=== PATIENT | female | born 1945 ===

== ENCOUNTER 2018-12-17 20:30 | Inpatient (IN) | payer MEDICARE, OTHER ==
--- NOTE | 2018-12-17 21:30 | ED PDOC ---
HPI: Trauma/Fall - HPI Time Seen by Provider: 12/17/18 20:36 Chief Complaint (Nursing): Trauma Chief Complaint (Provider): Trauma History Per: Patient History/Exam Limitations: no limitations Onset/Duration Of Symptoms: Mins Injury Occurred (Timing): Just Before Arrival Additional Complaint(s): 73 y/o female presents to the ED for evaluation of head trauma s/p fall, onset just prior to arrival. History obtained using [employer] #[id number]. Patient states she is supposed to use a walker but didn't when she tripped over an Air Conditioning unit and fell causing her to hit her head. Patient notes of experiencing a little pain to her lower back. Otherwise, patient denies any other injury to the extremities. Patient states she was able to get up and walk after. At this time, patient notes of having a mild headache where her head impa cted the ground. Otherwise, patient denies loss of consciousness, vomiting and nausea. Past Medical History Reviewed: Historical Data, Nursing Documentation, Vital Signs Vital Signs: Last Vital Signs Temp 98.2 F 12/17/18 20:36 Pulse 89 12/17/18 20:36 Resp 20 12/17/18 20:36 BP 159/86 H 12/17/18 20:36 Pulse Ox 100 12/17/18 20:36 - Medical History PMH: No Chronic Diseases - Surgical History Surgical History: No Surg Hx - Family History Family History: States: Unknown Family Hx - Allergies Allergies/Adverse Reactions: Allergies Allergy/AdvReac Type Severity Reaction Status Date / Time No Known Allergies Allergy Verified 12/17/18 20:36 Review of Systems ROS Statement: Except As Marked, All Systems Reviewed And Found Negative Gastrointestinal: Negative for: Nausea, Vomiting Musculoskeletal: Positive for: Other (HEAD PAIN S/P FALL ) Neurological: Positive for: Headache Physical Exam - Reviewed Nursing Documentation Reviewed: Yes Vital Signs Reviewed: Yes - Physical Exam Appears: Positive for: No Acute Distress Head Exam: Negative for: NORMAL INSPECTION (6 cm hematoma noted to the forehead. No crepidous or bony abnormality noted. ) Skin: Positive for: Normal Color, Warm, Dry Eye Exam: Positive for: Normal appearance, EOMI, PERRL Neck: Positive for: Normal (Cervical, Thoracic and Lumbar Spine with no bony abnormality or step off. ) Cardiovascular/Chest: Positive for: Regular Rate, Rhythm, Chest Non Tender. Negative for: Murmur Respiratory: Positive for: Normal Breath Sounds. Negative for: Respiratory Distress Gastrointestinal/Abdominal: Positive for: Normal Exam, Soft. Negative for: Tenderness Back: Positive for: Other (Cervical, Thoracic and Lumbar Spine with no bony abnormality or step off. 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 Negative for: Motor/Sensory Deficits - Laboratory Results Result Diagrams: 12/17/18 23:26 12/17/18 23:26 - ECG O2 Sat by Pulse Oximetry: 100 (RA) Pulse Ox Interpretation: Normal Medical Decision Making Medical Decision Making: Time: 2058 A/P: 73 y/o female presenting with a mechanical fall without syncope -- Will obtain imaging to rule out fracture or intracranial bleed -- CT Cervical Spine w/o Contrast -- CT Head w/o Contrast -- CT Lumbar Spine w/o Contrast -- CT Thoracic Spine w/o Contrast -- CXR Portable -- Motrin 600 mg PO -- Pelvis One View XR EXAM: CT Head Without IV contrast. CLINICAL HISTORY: FALL, INJURY TECHNIQUE: Axial computed tomography images of the head/brain without intravenous contrast. COMPARISON: None provided. FINDINGS: BRAIN: No acute intraparenchymal hemorrhage. No mass lesion. No CT evidence for acute territorial infarct. No midline shift or extra-axial collections. There is mild- moderate diffuse age-appropriate cerebral and cerebellar atrophy. There are bilateral periventricular and subcortical white matter hypolucencies compatible with mild chronic microvascular disease. VENTRICLES: No hydrocephalus. VASCULAR: Atherosclerotic vascular plaquing is seen in the carotid siphons bilaterally. ORBITS: The orbits are unremarkable. SINUSES AND MASTOIDS: The paranasal sinuses and mastoid air cells are clear. BONES: No fracture. SOFT TISSUES: Unremarkable. IMPRESSION: 1. No acute intracranial abnormality. 2. Mild-moderate diffuse age-appropriate cerebral and cerebellar atrophy. 3. Mild chronic microvascular diseases. 4. Atherosclerotic vascular plaquing in the carotid siphons. Electronically signed on Dec 17, 2018 10:49:58 PM EDT by: Kit Henderson M.D., JANET Certified By ABR & CBCCT Fellowship Trained MRI and CT Specialist EXAM: CT Cervical Spine Without IV contrast. CLINICAL HISTORY: FALL TECHNIQUE: Axial computed tomography images of the cervical spine without intravenous contrast. Sagittal and coronal reformatted images were generated. COMPARISON: None provided. FINDINGS: ALIGNMENT: Bony alignment is anatomic. DEGENERATIVE CHANGES: No significant canal stenosis or neural foraminal narrowing evident. There is evidence of degenerative disc disease at C5-6. Advanced bilateral uncovertebral facet arthropathy is noted at C5-6. SOFT TISSUES: The prevertebral soft tissues are within normal limits. BONES: There is a subtle hairline transverse fracture through the base of the odontoid process. This is an unstable fracture. No aggressive appearing osseous lesion. Moderate degenerative arthritis is seen within the atlanto-dens interval. Marginal osteophytic spurring arises from the C3-C6 vertebrae. IMPRESSION: 1. A subtle hairline transverse fracture is seen through the base of the odontoid process. This is an unstable fracture. 2. Evidence of degenerative disc disease at C5-6. 3. Advanced bilateral uncovertebral facet arthropathy at C5-6. 4. Moderate degenerative arthritis within the atlanto-dens interval. Electronically signed on Dec 17, 2018 10:50:16 PM EDT by: Kit Henderson M.D., JANET Certified By ABR & CBCCT Fellowship Trained MRI and CT Specialist EXAM: CT Thoracic Spine Without IV contrast. CLINICAL HISTORY: FALL TECHNIQUE: Axial computed tomography images of the thoracic spine without intravenous co ntrast. Sagittal and coronal reformatted images were generated. CONTRAST: Without COMPARISON: None provided. FINDINGS: BONES: No acute fracture or aggressive appearing osseous lesion. ALIGNMENT: Bony alignment is anatomic. DEGENERATIVE CHANGES: No significant central canal or neural foraminal stenosis. There are some bilateral apophyseal facet arthropathy at all levels which becomes progressively more pronounced in the lower levels.there is focal extrinsic compression defect along the inferior central endplate of T11 and superior central endplate of T12 compatible with Schmorl's node herniation. SOFT TISSUES: The soft tissues are unremarkable. IMPRESSION: 1. No acute thoracic spine abnormality. 2. Bilateral apophyseal facet arthropathy at all levels; more pronounced in the lower levels. 3. Evidence of Schmorl's node herniation at T11-12 as described above. Electronically signed on Dec 17, 2018 10:50:52 PM EDT by: Kit Henderson M.D., JAENT Certified By ABR & CBCCT Fellowship Trained MRI and CT Specialist EXAM: CT Lumbar Spine without IV contrast. CLINICAL HISTORY: FALL TECHNIQUE: Axial computed tomography images of the lumbar spine without intravenous contrast. Sagittal and coronal reformatted images were generated. 670.91 mGy-cm COMPARISON: None provided. FINDINGS: ALIGNMENT: Bony alignment is anatomic. DISCS/DEGENERATIVE CHANGES: T12/L1: No significant central canal or neural foraminal stenosis. Mild bi lateral apophyseal facet arthropathy. L1/L2: No significant central canal or neural foraminal stenosis. Moderate bilateral apophyseal facet arthropathy. L2/L3: There is marked central canal stenosis present. Marked bilateral apophyseal facet arthropathy. Moderate degenerative disc disease is noted. L3/4: No significant central canal or neural foraminal stenosis. Moderate bilateral apophyseal facet arthropathy. L4/5: No significant central canal or neural foraminal stenosis. Mild bilateral apophyseal facet arthropathy. L5/S1: No significant central canal or neural foraminal stenosis. Moderate bilateral apophyseal facet arthropathy. Advanced degenerative disc disease is noted. BONES: No acute fracture or aggressive appearing osseous lesion. SOFT TISSUES: The soft tissues are unremarkable. Extensive atherosclerotic vascular plaquing seen throughout the abdominal aorta. MISCELLANEOUS: No abnormal contrast enhancement. IMPRESSION: 1. No acute lumbar spine abnormality. 2. Marked central spinal canal stenosis at L2-3. 3. Bilateral apophyseal facet arthropathy at all levels; most pronounced at L2- 3. 4. Moderate degenerative disc disease at L2-3 and advanced degenerative disc disease at L5-S1. Electronically signed on Dec 17, 2018 11:01:21 PM EDT by: Kit Henderson M.D., JANET Certified By ABR & CBCCT Fellowship Trained MRI and CT Specialist Case was discussed with Dr. Fabian who reviewed images and states that there is no fracture. Patient was placed in C-Collar Patient admitted to Dr. Hollingsworth's service for observation and CT review in AM Scribe Attestation: Documented by Mariusz Felder, acting as a scribe Rosa Julien MD. Provider Scribe Attestation: All medical record entries made by the Scribe were at my direction and personally dictated by me. I have reviewed the chart and agree that the record accurately reflects my personal performance of the history, physical exam, medical decision making, and the department course for this patient. I have also personally directed, reviewed, and agree with the discharge instructions and disposition. Disposition - Clinical Impression Clinical Impression: Head injury - Patient ED Disposition Is Patient to be Admitted: Yes Discussed With : Von Hollingsworth Doctor Will See Patient In The: Hospital Counseled Patient/Family Regarding: Studies Performed, Diagnosis - Disposition Disposition Time: 23:00 Condition: FAIR
[2018-12-17 23:31] LABS: BASO # 0.1 K/uL (0.0-0.2); BASO % 1.1 % (0.0-2.0); EOS # 0.1 K/uL (0.0-0.7); EOS % 0.7 % (0.0-4.0); LYMPH # 1.5 K/uL (1.0-4.3); LYMPH % 20.5 % (20.0-40.0); MEAN CELL VOLUME 79.6 fl (81.0-99.0); MEAN CORPUSCULAR HEMOGLOBIN 25.6 pg (27.0-31.0); MEAN CORPUSCULAR HGB CONC 32.1 g/dL (33.0-37.0); MEAN PLATELET VOLUME 8.5 fl (7.2-11.7); MONO # 0.3 K/uL (0.0-0.8); MONO % 4.6 % (0.0-10.0); NEUT # 5.4 K/uL (1.8-7.0); NEUT % 73.1 % (50.0-75.0); NRBC % 0.1 % (0.0-0.0); RBC 4.31 Mil/uL (3.80-5.20); RED CELL DISTRIBUTION WIDTH 16.1 % (11.5-14.5); WHITE BLOOD COUNT 7.4 K/uL (4.8-10.8)
[2018-12-17 23:35] LABS: PROTHROMBIN TIME 11.2 Seconds (9.8-13.1)
[2018-12-17 23:38] LABS: PARTIAL THROMBOPLASTIN TIME 33.5 Seconds (25.6-37.1)
[2018-12-17 23:42] LABS: BLOOD UREA NITROGEN 17 mg/dl (7-17); CALCIUM 9.4 mg/dL (8.4-10.2); GFR NON-AFRICAN AMERICAN > 60
[2018-12-18] MEDS: Dextrose 5%/0.45% NS 1,000 ML IV SCH ×2 (06:39→20:33)
[2018-12-18 09:56] LABS: BASO # 0.1 K/uL (0.0-0.2); BASO % 1.1 % (0.0-2.0); EOS # 0.2 K/uL (0.0-0.7); EOS % 2.6 % (0.0-4.0); HEMOGLOBIN 10.8 g/dL (12.0-16.0); LYMPH # 1.7 K/uL (1.0-4.3); MEAN CELL VOLUME 79.2 fl (81.0-99.0); MEAN CORPUSCULAR HEMOGLOBIN 25.6 pg (27.0-31.0); MEAN CORPUSCULAR HGB CONC 32.3 g/dL (33.0-37.0); MEAN PLATELET VOLUME 8.7 fl (7.2-11.7); MONO # 0.6 K/uL (0.0-0.8); MONO % 9.2 % (0.0-10.0); NEUT # 3.9 K/uL (1.8-7.0); NEUT % 61.1 % (50.0-75.0); NRBC % 0.1 % (0.0-0.0); RBC 4.23 Mil/uL (3.80-5.20); RED CELL DISTRIBUTION WIDTH 16.2 % (11.5-14.5); WHITE BLOOD COUNT 6.4 K/uL (4.8-10.8)
[2018-12-18 10:03] LABS: ALB/GLOB RATIO 1.1 (1.0-2.1); ALT/SGPT 23 U/L (9-52); AST/SGOT 31 U/L (14-36); BLOOD UREA NITROGEN 15 mg/dl (7-17); CALCIUM 9.3 mg/dL (8.4-10.2); GFR NON-AFRICAN AMERICAN > 60; HDL CHOLESTEROL 54 MG/DL (30-70)
[2018-12-18 10:12] LABS: LDL CHOLESTEROL 101 mg/dL (0-129)
--- NOTE | 2018-12-18 10:13 | CT ---
Date of service: 12/17/2018 PROCEDURE: CT HEAD WITHOUT CONTRAST. HISTORY: fall COMPARISON: None available. TECHNIQUE: Axial computed tomography images were obtained through the head/brain without intravenous contrast. Radiation dose: Total exam DLP = 718.85 mGy-cm. This CT exam was performed using one or more of the following dose reduction techniques: Automated exposure control, adjustment of the mA and/or kV according to patient size, and/or use of iterative reconstruction technique. FINDINGS: HEMORRHAGE: No intracranial hemorrhage. BRAIN: No mass effect or edema. Atrophy. Chronic microvascular ischemic changes. VENTRICLES: Unremarkable. No hydrocephalus. CALVARIUM: Unremarkable. PARANASAL SINUSES: Unremarkable as visualized. No significant inflammatory changes. MASTOID AIR CELLS: Unremarkable as visualized. No inflammatory changes. OTHER FINDINGS: Mild right frontal scalp swelling. IMPRESSION: Mild right frontal scalp swelling. No calvarial fracture. No acute intracranial pathology. Age-related changes.
--- NOTE | 2018-12-18 10:22 | CT ---
Date of service: 12/17/2018 PROCEDURE: CT Cervical Spine without contrast HISTORY: fall COMPARISON: None available. TECHNIQUE: Axial computed tomography images were obtained of the cervical spine without the use of intravenous contrast. Coronal and sagittal reformatted images were created and reviewed. Radiation dose: Total exam DLP = 285.21 mGy-cm. This CT exam was performed using one or more of the following dose reduction techniques: Automated exposure control, adjustment of the mA and/or kV according to patient size, and/or use of iterative reconstruction technique. FINDINGS: VERTEBRAE: No fracture. Normal alignment. No destructive bony lesion. DISCS/SPINAL CANAL/NEURAL FORAMINA: Multilevel disc space narrowing with disc osteophyte complex formation. PARASPINAL SOFT TISSUES: Unremarkable. OTHER FINDINGS: None. IMPRESSION: Straightening of the normal cervical lordosis may be related to positioning/spasm. No acute fracture. This is discordant with the preliminary report provided by [facility] which described a hairline fracture in the base of the odontoid. The lucency they referred to represents a nutrient foramen/vascular channel. Multilevel degenerative changes.
--- NOTE | 2018-12-18 10:23 | RAD ---
Date of service: 12/17/2018 PROCEDURE: Radiographs of the pelvis. HISTORY: fall COMPARISON: None. TECHNIQUE: 1 view obtained. FINDINGS: BONES: Pelvic Bones: Unremarkable. Hips: No acute fracture. Bilateral joint space narrowing. JOINTS: Sacroiliac Joints: Sclerotic and narrowed. Pubic Symphysis: Sclerotic and narrowed. OTHER FINDINGS: None. IMPRESSION: No acute fracture. Bilateral hip degenerative changes.
--- NOTE | 2018-12-18 10:24 | RAD ---
Date of service: 12/17/2018 HISTORY: fall COMPARISON: No prior. TECHNIQUE: 1 view obtained. FINDINGS: LUNGS: No active pulmonary disease. PLEURA: No significant pleural effusion identified, no pneumothorax apparent. CARDIOVASCULAR: Aortic atherosclerotic calcifications. Cardiomediastinal silhouette stably enlarged. OSSEOUS STRUCTURES: Spinal degenerative changes. VISUALIZED UPPER ABDOMEN: Normal. OTHER FINDINGS: None. IMPRESSION: No active disease.
--- NOTE | 2018-12-18 10:30 | CT ---
Date of service: 12/17/2018 PROCEDURE: CT Thoracic Spine without contrast HISTORY: fall COMPARISON: None available. TECHNIQUE: Axial computed tomography images were obtained of the thoracic spine without intravenous contrast. Coronal and sagittal reformatted images were created and reviewed. Radiation dose: Total exam DLP = 540.67 mGy-cm. This CT exam was performed using one or more of the following dose reduction techniques: Automated exposure control, adjustment of the mA and/or kV according to patient size, and/or use of iterative reconstruction technique. FINDINGS: VERTEBRAE: Subtle sclerosis involving the superior portion of T5. DISCS/SPINAL CANAL/NEURAL FORAMINA: Multilevel disc space narrowing with disc osteophyte complex formation. Multilevel Schmorl nodes. PARASPINAL SOFT TISSUES: Unremarkable. OTHER FINDINGS: Unremarkable. IMPRESSION: Subtle sclerosis involving the superior aspect of T5 for which a very mild vertebral compression fracture cannot be excluded. MRI of the thoracic spine can be obtained for further evaluation as clinically needed. This is discordant the preliminary interpretation provided by [facility].
--- NOTE | 2018-12-18 10:36 | CT ---
Date of service: 12/17/2018 PROCEDURE: CT Lumbar Spine without contrast HISTORY: fall COMPARISON: None available. TECHNIQUE: Axial computed tomography images were obtained of the lumbar spine without the use of intravenous contrast. Coronal and sagittal reformatted images were created and reviewed. Radiation dose: Total exam DLP = 670.91 mGy-cm. This CT exam was performed using one or more of the following dose reduction techniques: Automated exposure control, adjustment of the mA and/or kV according to patient size, and/or use of iterative reconstruction technique. FINDINGS: VERTEBRAE: Unremarkable. No fracture. Normal alignment. DISCS/SPINAL CANAL/NEURAL FORAMINA: T12-L1: Broad-based disc bulge without significant central canal and neural foraminal stenosis L1-2: Broad-based disc bulge with facet hypertrophy/arthropathy resulting in mild central canal stenosis L2-3: Flattening of the disc with vacuum disc phenomenon. Broad based disc bulge with facet hypertrophy/arthropathy resulting in severe central canal and bilateral neural foraminal stenosis. L3-4: Broad-based disc bulge with facet hypertrophy/arthropathy resulting in mild central canal stenosis and mild bilateral neural foraminal stenosis L4-L5: Broad-based disc bulge, asymmetric to the right, with facet hypertrophy/arthropathy result in mild central canal stenosis and [id number] left neural foraminal stenosis L5-S1: Broad-based disc bulge, asymmetric to the right 5th posteriorly displaces the intra canal right S1 nerve PARASPINAL SOFT TISSUES: Unremarkable. OTHER FINDINGS: None. IMPRESSION: No acute fracture. Multilevel degenerative changes as above described, worst at L2-3 where there is severe central canal and neural foraminal stenosis.
[2018-12-18 13:47] LABS: SQUAMOUS EPITHIAL 2 /hpf (0-5); URINE BILIRUBIN NEGATIVE (NEGATIVE); URINE BLOOD SMALL (NEGATIVE); URINE CLARITY CLEAR (Clear); URINE COLOR YELLOW (YELLOW); URINE GLUCOSE (UA) NEG (NEGATIVE); URINE LEUKOCYTE ESTERASE NEG Leu/uL (Negative); URINE PROTEIN NEGATIVE (NEGATIVE); URINE UROBILINOGEN 0.2-1.0 mg/dL (0.2-1.0)
[2018-12-18] MEDS ORDERED: Benzocaine/Menthol (Cepacol) Lozenge PO PRN (16:21)
[2018-12-18] MEDS ORDERED: Magnesium Hydroxide Susp 30 ml UD PO PRN (16:21)
[2018-12-18] MEDS ORDERED: Ergocalciferol 50,000 Intl Units Cap PO SCH ×2 (16:30→22:00)
--- NOTE | 2018-12-18 16:52 | CP.PCM.HP ---
History of Present Illness - History of Present Illness History of Present Illness: CC: Fall/Trauma. 73 y/o F, Hx Dementia, resident at [facility], brought on 12/17/18 to ER [facility], via EMS for evaluation of Fall/Trauma on DOA, Pt trying to walk while in the [facility] without the walker, she lost the balance hitting her head against the ground, Pt c/o of pain in the forehead, described as constant, moderate to severe intensity 8:10 with no relief, associated to hematoma in the site. Worsening symptoms: Irritability, poor historian 2nd to dementia. Aggravated factor: Walking/movements. Denied: Fever, chills, LOC, n/v/d, abdominal pain, urinary symptoms, CP, palpitations, SOB, cough, sick contact. Cervical Spine CT: No acute Fx. CXR: No active disease. Head CT: Mild R frontal scalp swelling, no calvarial Fx or acute intracranial pathology. Lumbar Spine CT: No acute Fx. Degenerative changes, worst at L2-3 area of severe central canal and neural foramina stenosis. Thoracic Spine CT: Sclerosis involving the superior aspect of T5 which a very mild vertebral compression Fx can not be excluded. Present on Admission - Present on Admission Any Indicators Present on Admission: No Review of Systems - Review of Systems Systems not reviewed;Unavailable: Acuity of Condition, Dementia Past Patient History - Past Medical History & Family History Pertinent Family History: Unknown - Past Social History Smoking Status: Unknown If Ever Smoked Alcohol: None Drugs: Denies Home Situation {Lives}: Senior Living - CARDIAC Hx Cardiac Disorders: Yes Hx Hypertension: Yes - PULMONARY Hx Respiratory Disorders: Yes Hx Asthma: Yes - NEUROLOGICAL Hx Neurological Disorder: Yes Hx Dementia: Yes Hx Vertigo: Yes - HEENT Hx HEENT Problems: No - RENAL Hx Chronic Kidney Disease: No - ENDOCRINE/METABOLIC Hx Endocrine Disorders: Yes Hx Hypothyroidism: Yes - HEMATOLOGICAL/ONCOLOGICAL Hx Blood Disorders: No - INTEGUMENTARY Hx Dermatological Problems: No - MUSCULOSKELETAL/RHEUMATOLOGICAL Hx Musculoskeletal Disorders: Yes Hx Falls: Yes - GASTROINTESTINAL Hx Gastrointestinal Disorders: Yes Hx Constipation: Yes Hx Ulcer: Yes Other/Comment: GERD - GENITOURINARY/GYNECOLOGICAL Hx Genitourinary Disorders: No - PSYCHIATRIC Hx Psychophysiologic Disorder: Yes Hx Anxiety: Yes Hx Substance Use: No - SURGICAL HISTORY Hx Surgeries: Yes Other/Comment: pt unsure of surgical hx, pt has hx of dementia. Meds Allergies/Adverse Reactions: Allergies Allergy/AdvReac Type Severity Reaction Status Date / Time Steele And Derivatives Allergy ITCHING Verified 12/18/18 04:51 Physical Exam - Constitutional Appears: No Acute Distress, Confused - Head Exam Additional comments: Hematoma to forehead - Eye Exam Eye Exam: PERRL - ENT Exam ENT Exam: Normal Exam - Neck Exam Neck exam: Positive for: Normal Inspection - Respiratory Exam Respiratory Exam: NORMAL BREATHING PATTERN - Cardiovascular Exam Cardiovascular Exam: REGULAR RHYTHM - GI/Abdominal Exam GI & Abdominal Exam: Normal Bowel Sounds, Soft - Extremities Exam Extremities exam: Positive for: normal inspection - Back Exam Back exam: tenderness (mild on palpation [id number]) - Neurological Exam Neurological exam: Abnormal Gait, CN II-XII Intact Additional comments: Forgetful, confused, follows simple commands. - Psychiatric Exam Additional comments: Calm - Skin Skin Exam: Warm Results - Vital Signs Recent Vital Signs: Last Vital Signs Temp 98.1 F 12/18/18 16:39 Pulse 70 12/18/18 16:39 Resp 20 12/18/18 16:39 BP 133/64 12/18/18 16:39 Pulse Ox 97 12/18/18 16:39 reviewed J.P. - Labs Result Diagrams: 12/20/18 12:15 12/20/18 12:15 Labs: Laboratory Results - last 24 hr 12/17/18 12/17/18 12/17/18 23:26 23:26 23:26 WBC 7.4 RBC 4.31 Hgb 11.0 L Hct 34.3 MCV 79.6 L MCH 25.6 L MCHC 32.1 L RDW 16.1 H Plt Count 439 H MPV 8.5 Neut % (Auto) 73.1 Lymph % (Auto) 20.5 Churchill % (Auto) 4.6 Eos % (Auto) 0.7 Baso % (Auto) 1.1 Neut # (Auto) 5.4 Lymph # (Auto) 1.5 Churchill # (Auto) 0.3 Eos # (Auto) 0.1 Baso # (Auto) 0.1 PT 11.2 INR 1.0 APTT 33.5 Sodium 136 Potassium 5.2 H Chloride 101 Carbon Dioxide 27 Anion Gap 13 BUN 17 Creatinine 0.6 L Est GFR ( Amer) > 60 Est GFR (Non-Af Amer) > 60 Random Glucose 129 H Calcium 9.4 Total Bilirubin AST ALT Alkaline Phosphatase Total Protein Albumin Globulin Albumin/Globulin Ratio Triglycerides Cholesterol LDL Cholesterol Direct HDL Cholesterol Thyroxine (T4) TSH 3rd Generation Urine Color Urine Clarity Urine pH Ur Specific [place] Urine Protein Urine Glucose (UA) Urine Ketones Urine Blood Urine Nitrate Urine Bilirubin Urine Urobilinogen Ur Leukocyte Esterase Urine RBC (Auto) Urine Microscopic WBC Ur Squamous Epith Cells Blood Type Blood Type Confirm Antibody Screen BBK History Checked 12/17/18 12/18/18 12/18/18 23:26 08:55 08:55 WBC 6.4 RBC 4.23 Hgb 10.8 L Hct 33.5 L MCV 79.2 L MCH 25.6 L MCHC 32.3 L RDW 16.2 H Plt Count 413 H MPV 8.7 Neut % (Auto) 61.1 Lymph % (Auto) 26.0 Churchill % (Auto) 9.2 Eos % (Auto) 2.6 Baso % (Auto) 1.1 Neut # (Auto) 3.9 Lymph # (Auto) 1.7 Churchill # (Auto) 0.6 Eos # (Auto) 0.2 Baso # (Auto) 0.1 PT INR APTT Sodium 140 Potassium 3.6 Chloride 102 Carbon Dioxide 31 H Anion Gap 11 BUN 15 Creatinine 0.7 Est GFR ( Amer) > 60 Est GFR (Non-Af Amer) > 60 Random Glucose 110 H Calcium 9.3 Total Bilirubin 0.4 AST 31 ALT 23 Alkaline Phosphatase 137 H Total Protein 7.8 Albumin 4.0 Globulin 3.8 Albumin/Globulin Ratio 1.1 Triglycerides 62 Cholesterol 193 LDL Cholesterol Direct 101 HDL Cholesterol 54 Thyroxine (T4) 10.8 TSH 3rd Generation 0.82 Urine Color Urine Clarity Urine pH Ur Specific [place] Urine Protein Urine Glucose (UA) Urine Ketones Urine Blood Urine Nitrate Urine Bilirubin Urine Urobilinogen Ur Leukocyte Esterase Urine RBC (Auto) Urine Microscopic WBC Ur Squamous Epith Cells Blood Type O POSITIVE Blood Type Confirm Antibody Screen Negative BBK History Checked No verified bt 12/18/18 12/18/18 09:36 13:15 WBC RBC Hgb Hct MCV MCH MCHC RDW Plt Count MPV Neut % (Auto) Lymph % (Auto) Churchill % (Auto) Eos % (Auto) Baso % (Auto) Neut # (Auto) Lymph # (Auto) Churchill # (Auto) Eos # (Auto) Baso # (Auto) PT INR APTT Sodium Potassium Chloride Carbon Dioxide Anion Gap BUN Creatinine Est GFR ( Amer) Est GFR (Non-Af Amer) Random Glucose Calcium Total Bilirubin AST ALT Alkaline Phosphatase Total Protein Albumin Globulin Albumin/Globulin Ratio Triglycerides Cholesterol LDL Cholesterol Direct HDL Cholesterol Thyroxine (T4) TSH 3rd Generation Urine Color Yellow Urine Clarity Clear Urine pH 7.0 Ur Specific [place] 1.010 Urine Protein Negative Urine Glucose (UA) Neg Urine Ketones Negative Urine Blood Small Urine Nitrate Negative Urine Bilirubin Negative Urine Urobilinogen 0.2-1.0 Ur Leukocyte Esterase Neg Urine RBC (Auto) 3 Urine Microscopic WBC 1 Ur Squamous Epith Cells 2 Blood Type Blood Type Confirm O POSITIVE Antibody Screen BBK History Checked reviewed J.P. - Imaging and Cardiology Chest x-ray Status: Report reviewed by me (TaranP.) CT scan - head Status: Report reviewed by me (Dari.P.) CT scan - chest Status: Report reviewed by me Cervical Spine CT Status: Report reviewed by me (J.P.) Lumbar Spine CT Status: Report reviewed by me (J.P.) Thoracic Spine CT Status: Report reviewed by me (J.P.) Pelvis X-Ray Status: Report reviewed by me (J.P.) Assessment & Plan (1) Status post fall Status: Acute Priority: High (2) Traumatic hematoma of forehead Status: Acute Priority: High (3) HTN (hypertension) Status: Chronic Priority: Medium (4) Dementia Status: Chronic Priority: High (5) Hypothyroidism Status: Chronic Priority: Medium (6) Vertigo Status: Chronic Priority: Medium - Assessment and Plan (Free Text) Plan: F/U MRI Cervical and Thoracic Spine, Carotid/Vertebral U-S, continue with Antivert, Tramadol, Depakote, Levothyroxine and rest of Tx. OT/PT eval. Cardiology consult. - Date & Time Date: 12/18/18 Time: 15:40
[2018-12-18] MEDS: Divalproex 125 mg Sprinkle Capsule PO SCH (18:14)
[2018-12-19] MEDS: Levothyroxine 125 MCG TAB PO SCH (06:42)
[2018-12-19] MEDS: Divalproex 125 mg Sprinkle Capsule PO SCH ×2 (08:29→16:37)
[2018-12-19] MEDS: Pantoprazole 40 mg EC Tab PO SCH (08:31)
--- NOTE | 2018-12-19 15:17 | US ---
Date of service: 12/19/2018 PROCEDURE: Duplex ultrasound of the carotid and vertebral arteries. HISTORY: Syncope COMPARISON: None available. TECHNIQUE: Grayscale and duplex Doppler evaluation of the cervical carotid and vertebral arteries were performed. The common carotid, carotid bifurcations and cervical ICA and proximal ECA were evaluated. The vertebral arteries were evaluated for gross patency and direction. FINDINGS: RIGHT CAROTID ARTERIES: Common Carotid Artery: Intimal thickening maximal flow velocity of 105.5 cm/s. Carotid Bifurcation: Intimal thickening mild plaque Internal Carotid Artery:Intimal thickening, mild plaque maximal flow velocity of 85.3 cm/s. External Carotid Artery (proximal branches): Normal. Maximal flow velocity of 93.1 cm/s. ICA/CCA Ratio: 0.9 LEFT CAROTID ARTERIES: Common Carotid Artery: Intimal thickening maximal flow velocity of 119.4 cm/s. Carotid Bifurcation: Intimal thickening, mild plaque Internal Carotid Artery:Intimal thickening, mild plaque maximal flow velocity of 86.4 cm/s. External Carotid Artery (proximal branches): Normal. Maximal flow velocity of 112.7 cm/s. ICA/CCA Ratio: 0.9 VERTEBRAL ARTERIES: Right Vertebral Artery: Patent. Antegrade flow. Left Vertebral Artery: Patent. Antegrade flow. OTHER FINDINGS: No atherosclerotic calcification present IMPRESSION: Per NASCET criteria, less than 50 percent stenosis of the internal carotid arteries, bilaterally.
--- NOTE | 2018-12-19 19:59 | CP.PCM.PN ---
Subjective - Date & Time of Evaluation Date of Evaluation: 12/19/18 - Subjective Subjective: F/U s/p Fall/Trauma. Pt awake, confused, no A/D. Objective - Vital Signs/Intake and Output Vital Signs (last 24 hours): Temp Pulse Resp BP Pulse Ox 97.1 F L 74 18 155/61 H 94 L 12/19/18 16:31 12/19/18 16:31 12/19/18 16:31 12/19/18 16:31 12/19/18 16:31 - Medications Medications: Current Medications Acetaminophen (Tylenol 325mg Tab) 650 mg PO Q4 PRN PRN Reason: fever >101.0 Acetaminophen (Tylenol 325mg Tab) 650 mg PO Q6 PRN PRN Reason: Pain, Mild (1-3) Last Admin: 12/18/18 22:59 Dose: 650 mg Benzocaine/Menthol (Cepacol Sore Throat) 1 maurizio PO Q4 PRN PRN Reason: Sore Throat Bisacodyl (Dulcolax) 10 mg [place] DAILY PRN PRN Reason: Constipation Divalproex Sodium (Depakote Sprinkles) 125 mg PO BID [facility] Last Admin: 12/19/18 16:37 Dose: 125 mg Ergocalciferol (Drisdol 50,000 Intl Units Cap) 1 cap PO Q7D [facility] Levothyroxine Sodium (Synthroid) 125 mcg PO DAILY@0630 [facility] Last Admin: 12/19/18 06:42 Dose: 125 mcg Losartan Potassium (Cozaar) 50 mg PO DAILY [facility] Last Admin: 12/19/18 08:28 Dose: 50 mg Magnesium Hydroxide (Milk Of Magnesia) 30 ml PO HS PRN PRN Reason: Constipation Meclizine HCl (Antivert) 12.5 mg PO BID PRN PRN Reason: Dizziness Ondansetron HCl (Zofran Tab) 4 mg PO Q4 PRN PRN Reason: Nausea/Vomiting Pantoprazole Sodium (Protonix Ec Tab) 40 mg PO DAILY [facility] Last Admin: 12/19/18 08:31 Dose: 40 mg Tramadol HCl (Ultram) 50 mg PO DAILY [facility] Last Admin: 12/19/18 08:35 Dose: 50 mg - Labs Labs: 12/18/18 08:55 12/18/18 08:55 PT 11.2 Seconds (9.8-13.1) 12/17/18 23:26 INR 1.0 12/17/18 23:26 APTT 33.5 Seconds (25.6-37.1) 12/17/18 23:26 - Constitutional Appears: No Acute Distress, Confused - Head Exam Head Exam: NORMAL INSPECTION - Eye Exam Eye Exam: PERRL - ENT Exam ENT Exam: Normal Exam - Neck Exam Neck Exam: Normal Inspection - Respiratory Exam Respiratory Exam: NORMAL BREATHING PATTERN - Cardiovascular Exam Cardiovascular Exam: REGULAR RHYTHM - GI/Abdominal Exam GI & Abdominal Exam: Soft, Normal Bowel Sounds - Extremities Exam Extremities Exam: Normal Inspection - Back Exam Back Exam: tenderness (mild on palpation [id number]) - Neurological Exam Neurological Exam: Abnormal Gait, Awake, CN II-XII Intact Additional comments: Forgetful, confused, follows commands. - Psychiatric Exam Additional comments: Calm - Skin Skin Exam: Warm Assessment and Plan (1) Status post fall Status: Acute (2) Traumatic hematoma of forehead Status: Acute (3) HTN (hypertension) Status: Chronic (4) Dementia Status: Chronic (5) Hypothyroidism Status: Chronic (6) Vertigo Status: Chronic - Assessment and Plan (Free Text) Plan: Vertebral/Carotid U-S shwed: less than 50% stenosis of the internal carotid arteries b/l. Continue Tramadol, Ultran, Depakote, Cozaar, Synthroid, Protonix and rest of Tx, f/u Cervical & Thoracic MRI.
[2018-12-20] MEDS: Levothyroxine 125 MCG TAB PO SCH (07:23)
[2018-12-20] MEDS: Divalproex 125 mg Sprinkle Capsule PO SCH ×2 (09:04→17:11)
[2018-12-20] MEDS: Pantoprazole 40 mg EC Tab PO SCH (09:05)
[2018-12-20 12:30] LABS: HEMOGLOBIN 10.9 g/dL (12.0-16.0); MEAN CELL VOLUME 79.2 fl (81.0-99.0); MEAN CORPUSCULAR HEMOGLOBIN 25.5 pg (27.0-31.0); MEAN CORPUSCULAR HGB CONC 32.2 g/dL (33.0-37.0); RBC 4.26 Mil/uL (3.80-5.20); RED CELL DISTRIBUTION WIDTH 16.1 % (11.5-14.5); WHITE BLOOD COUNT 7.3 K/uL (4.8-10.8)
[2018-12-20 12:59] LABS: ALB/GLOB RATIO 1.1 (1.0-2.1); ALBUMIN 4.1 g/dL (3.5-5.0); ALT/SGPT 24 U/L (9-52); AST/SGOT 24 U/L (14-36); BLOOD UREA NITROGEN 16 mg/dl (7-17); CALCIUM 9.1 mg/dL (8.4-10.2); GFR NON-AFRICAN AMERICAN > 60
--- NOTE | 2018-12-20 15:41 | CP.PCM.PN ---
Subjective - Date & Time of Evaluation Date of Evaluation: 12/20/18 Time of Evaluation: 12:45 - Subjective Subjective: F/U s/p Fall. Confused, no A/D. Objective - Vital Signs/Intake and Output Vital Signs (last 24 hours): Temp Pulse Resp BP Pulse Ox 98.1 F 67 18 159/74 H 97 12/20/18 08:54 12/20/18 09:05 12/20/18 08:54 12/20/18 09:05 12/20/18 08:54 - Medications Medications: Current Medications Acetaminophen (Tylenol 325mg Tab) 650 mg PO Q4 PRN PRN Reason: fever >101.0 Acetaminophen (Tylenol 325mg Tab) 650 mg PO Q6 PRN PRN Reason: Pain, Mild (1-3) Last Admin: 12/18/18 22:59 Dose: 650 mg Benzocaine/Menthol (Cepacol Sore Throat) 1 maurizio PO Q4 PRN PRN Reason: Sore Throat Bisacodyl (Dulcolax) 10 mg [place] DAILY PRN PRN Reason: Constipation Divalproex Sodium (Depakote Sprinkles) 125 mg PO BID [facility] Last Admin: 12/20/18 09:04 Dose: 125 mg Enoxaparin Sodium (Lovenox) 40 mg SC DAILY [facility]; Protocol Ergocalciferol (Drisdol 50,000 Intl Units Cap) 1 cap PO Q7D [facility] Levothyroxine Sodium (Synthroid) 125 mcg PO DAILY@0630 [facility] Last Admin: 12/20/18 07:23 Dose: 125 mcg Losartan Potassium (Cozaar) 50 mg PO DAILY [facility] Last Admin: 12/20/18 09:05 Dose: 50 mg Magnesium Hydroxide (Milk Of Magnesia) 30 ml PO HS PRN PRN Reason: Constipation Meclizine HCl (Antivert) 12.5 mg PO BID PRN PRN Reason: Dizziness Last Admin: 12/20/18 09:05 Dose: 12.5 mg Ondansetron HCl (Zofran Tab) 4 mg PO Q4 PRN PRN Reason: Nausea/Vomiting Pantoprazole Sodium (Protonix Ec Tab) 40 mg PO DAILY [facility] Last Admin: 12/20/18 09:05 Dose: 40 mg Tramadol HCl (Ultram) 50 mg PO DAILY [facility] Last Admin: 12/20/18 09:10 Dose: 50 mg - Labs Labs: 12/20/18 12:15 12/20/18 12:15 PT 11.2 Seconds (9.8-13.1) 12/17/18 23:26 INR 1.0 12/17/18 23:26 APTT 33.5 Seconds (25.6-37.1) 12/17/18 23:26 - Constitutional Appears: No Acute Distress, Confused - Head Exam Head Exam: NORMAL INSPECTION - Eye Exam Eye Exam: PERRL - ENT Exam ENT Exam: Normal Exam - Neck Exam Neck Exam: Normal Inspection - Respiratory Exam Respiratory Exam: NORMAL BREATHING PATTERN - Cardiovascular Exam Cardiovascular Exam: REGULAR RHYTHM - GI/Abdominal Exam GI & Abdominal Exam: Soft, Normal Bowel Sounds - Extremities Exam Extremities Exam: Normal Inspection - Back Exam Back Exam: tenderness (mild on palpation L-S) - Neurological Exam Neurological Exam: Abnormal Gait, Awake, CN II-XII Intact Additional comments: Forgetful, confused, follows commands. - Psychiatric Exam Additional comments: Calm - Skin Skin Exam: Warm Assessment and Plan (1) Status post fall Status: Acute (2) Traumatic hematoma of forehead Status: Acute (3) HTN (hypertension) Status: Chronic (4) Dementia Status: Chronic (5) Hypothyroidism Status: Chronic (6) Vertigo Status: Chronic - Assessment and Plan (Free Text) Plan: F/U Thoracic Spine, Cervical Spine and Brain MRI, continue Depakote, Antivert, Ultran, Syntrhoid and rest of Tx.
--- NOTE | 2018-12-20 16:33 | MRI ---
Date of service: 12/20/2018 PROCEDURE: MRI BRAIN WITHOUT CONTRAST HISTORY: syncope COMPARISON: Noncontrast head CT 12/17/2018. TECHNIQUE: Multiplanar, multisequence MR images of the brain were obtained without intravenous contrast enhancement. FINDINGS: DWI/HEMORRHAGE: Acute subacute infarct is identified at the right basal ganglia laterally. T1 weighted imaging of this area reveals mild hyperintensity but there is no signal dephasing identified in the same location at the gradient echo axial series and this is not felt to reflect hemorrhage. BRAIN PARENCHYMA: Diffuse cerebral atrophy and chronic microangiopathy are reiterated as there multiple tiny likely chronic lacunes scattered the bilateral basal ganglia and thalami. Additional long TR hyperintensities likely reflect dilated perivascular spaces. No mass effect or lobar brain infarction appreciable. No suspicious extra-axial collection evident. Midline brain anatomy is stable. VENTRICLES: Unremarkable. No hydrocephalus. CRANIUM: Unremarkable. ORBITS: Grossly unremarkable. PARANASAL SINUSES/MASTOIDS: Clear VASCULAR SYSTEM: Skull base flow voids intact. OTHER FINDINGS: None. IMPRESSION: Findings most compatible with a small infarct on acute or subacute basis at the right basal ganglia laterally. Consider follow-up CT of the head without contrast. Multiple chronic lacune scattered and better defined at the bilateral basal ganglia and thalami. Reiterated age related neuro degenerative changes.
--- NOTE | 2018-12-20 17:22 | MRI ---
Date of service: 12/20/2018 PROCEDURE: MR CERVICAL SPINE WITHOUT CONTRAST HISTORY: Fx COMPARISON: None available. TECHNIQUE: Multiecho multiplanar sequences were performed through the cervical spine without the use of intravenous contrast. FINDINGS: Mildly straightened cervical curvature without fracture or spondylolisthesis. No suspicious matter signal change are identified. C1-2 articulation is moderately degenerated but intact otherwise. Craniocervical junction appears intact. Cervical cord appears normal in volume and overall signal intensity diffusely. Truncation artifacts are accentuated in the STIR sequence at the C4 and C5 vertebral body levels. Prevertebral paraspinal soft tissues appear diffusely unremarkable. C2-C3: No disc herniation, spinal canal stenosis or neural foraminal narrowing. Limited posterior disc bulging present. C3-C4: No disc herniation, spinal canal stenosis or neural foraminal narrowing. Limited posterior disc bulging appreciated. C4-C5: No disc herniation, spinal canal stenosis or neural foraminal narrowing. Limited posterior disc bulging appreciated. C5-C6: Disc osteophyte complex identified without disc herniation causing mild central canal stenosis. Lateral osteophytes result in moderate right and borderline left neural foraminal stenosis. No gross disc herniation identified. C6-C7: No disc herniation, spinal canal stenosis or neural foraminal narrowing. C7-T1: No disc herniation, spinal canal stenosis or neural foraminal narrowing. OTHER FINDINGS: None. IMPRESSION: Mild degenerative central stenosis at C5-6 on the basis of disc osteophyte complex and uncovertebral as well as facet arthropathy. Moderate right and borderline left neural foraminal stenosis appreciable.
--- NOTE | 2018-12-20 17:26 | MRI ---
Date of service: 12/20/2018 PROCEDURE: MR THORACIC SPINE WITHOUT CONTRAST HISTORY: Fx COMPARISON: None available. TECHNIQUE: Multiecho multiplanar sequences were performed through the thoracic spine without the use of intravenous contrast. FINDINGS: ALIGNMENT: Normal thoracic spinal alignment. Normal thoracic kyphosis. VERTEBRA: Edema is appreciate the upper endplates of T1, T2 and T5 with limited anterior wedging compatible with mild acute subacute compression fractures. No retropulsion of fracture fragments is identified and Schmorl's nodes are again seen in the endplates surrounding the T11-12 intervertebral disc space. MARROW: A benign hemangioma is appreciate the T12 vertebral body laterally with remaining Marrow otherwise unremarkable excluding edema pattern described in vertebral section above. PARASPINAL SOFT TISSUES: Unremarkable. CORD: Unremarkable thoracic cord. No volume loss, signal abnormality or syrinx. DISCS: No disc herniation, spinal canal stenosis, or neuroforaminal narrowing. OTHER FINDINGS: None. IMPRESSION: Acute subacute mild anterior wedge compression fractures affecting T1, T2 and T5 as per above. No disc herniation, central canal or neural foraminal stenosis appreciable. No spondylolisthesis.
--- NOTE | 2018-12-20 19:14 | CP.PCM.PN ---
Subjective - Date & Time of Evaluation Date of Evaluation: 12/20/18 Time of Evaluation: 19:12 - Subjective Subjective: 73 y o female fell out of bed hx dementia c/o upper back pain MR shows some minimal compression fx upper thoracic subacute and c\acute no surgical intervention indicated suggest analgesics and PT Objective - Vital Signs/Intake and Output Vital Signs (last 24 hours): Temp Pulse Resp BP Pulse Ox 98 F 67 20 138/69 94 L 12/20/18 17:06 12/20/18 17:06 12/20/18 17:06 12/20/18 17:06 12/20/18 17:06 - Medications Medications: Current Medications Acetaminophen (Tylenol 325mg Tab) 650 mg PO Q4 PRN PRN Reason: fever >101.0 Acetaminophen (Tylenol 325mg Tab) 650 mg PO Q6 PRN PRN Reason: Pain, Mild (1-3) Last Admin: 12/18/18 22:59 Dose: 650 mg Benzocaine/Menthol (Cepacol Sore Throat) 1 maurizio PO Q4 PRN PRN Reason: Sore Throat Bisacodyl (Dulcolax) 10 mg [place] DAILY PRN PRN Reason: Constipation Divalproex Sodium (Depakote Sprinkles) 125 mg PO BID [facility] Last Admin: 12/20/18 17:11 Dose: 125 mg Enoxaparin Sodium (Lovenox) 40 mg SC DAILY [facility]; Protocol Ergocalciferol (Drisdol 50,000 Intl Units Cap) 1 cap PO Q7D [facility] Levothyroxine Sodium (Synthroid) 125 mcg PO DAILY@0630 [facility] Last Admin: 12/20/18 07:23 Dose: 125 mcg Losartan Potassium (Cozaar) 50 mg PO DAILY [facility] Last Admin: 12/20/18 09:05 Dose: 50 mg Magnesium Hydroxide (Milk Of Magnesia) 30 ml PO HS PRN PRN Reason: Constipation Meclizine HCl (Antivert) 12.5 mg PO BID PRN PRN Reason: Dizziness Last Admin: 12/20/18 09:05 Dose: 12.5 mg Ondansetron HCl (Zofran Tab) 4 mg PO Q4 PRN PRN Reason: Nausea/Vomiting Pantoprazole Sodium (Protonix Ec Tab) 40 mg PO DAILY [facility] Last Admin: 12/20/18 09:05 Dose: 40 mg Tramadol HCl (Ultram) 50 mg PO DAILY [facility] Last Admin: 12/20/18 09:10 Dose: 50 mg - Labs Labs: 12/20/18 12:15 12/20/18 12:15 PT 11.2 Seconds (9.8-13.1) 12/17/18 23:26 INR 1.0 12/17/18 23:26 APTT 33.5 Seconds (25.6-37.1) 12/17/18 23:26
--- NOTE | 2018-12-20 19:57 | CARD ---
APPROVED REPORT Date of service: 12/20/2018 EXAM: Two-dimensional and M-mode echocardiogram with Doppler and color Doppler. Other Information Quality : GoodRhythm : NSR INDICATION Syncope 2D DIMENSIONS IVSd1.00 (0.7-1.1cm)LVDd3.54 (3.9-5.9cm) LVOT Diameter1.58 (1.8-2.4cm)PWd1.19 (0.7-1.1cm) IVSs1.50 (0.8-1.2cm)LVDs2.28 (2.5-4.0cm) FS (%) 35.6 %PWs1.29 (0.8-1.2cm) M-Mode DIMENSIONS Left Atrium (MM)3.28 (2.5-4.0cm)IVSd1.02 (0.7-1.1cm) Aortic Root2.70 (2.2-3.7cm)LVDd4.52 (4.0-5.6cm) Aortic Cusp Exc.1.60 (1.5-2.0cm)PWd0.99 (0.7-1.1cm) IVSs1.38 cmFS (%) 49 % LVDs2.29 (2.0-3.8cm)PWs1.24 cm Aortic Valve AoV Peak Xuzhcezk518.5cm/sAoV VTI35.3cmAO Peak GR.16mmHg LVOT Peak Jgzhmurp167.1cm/sLVOT VTI26.69cmAO Mean GR.8mmHg TEREZA (VMAX)0.15od3ZNP (VTI)0.84cm2 Mitral Valve MV E Nlzjofig84.4cm/sMV DECEL [id number] A Felvmhen253.7cm/s MV KVU93ybN/A ratio0.6MVA (PHT)2.32cm2 TDI Lateral E' Peak V7.17cm/sMedial E' Peak V7.09cm/sE/Lateral E'8.6 E/Medial E'8.7 LEFT VENTRICLE The left ventricle is normal size. There is normal left ventricular wall thickness. The left ventricular systolic function is normal. The estimated ejection fraction is 55-60% No regional wall motion abnormalities noted.. Transmitral Doppler flow pattern is Grade I-abnormal relaxation pattern. No left ventricle thrombus noted on this study. There is no ventricular septal defect visualized. There is no left ventricular aneurysm. There is no mass noted in the left ventricle. RIGHT VENTRICLE The right ventricle is normal size. There is normal right ventricular wall thickness. The right ventricular systolic function is normal. ATRIA The left atrium size is normal. The right atrium size is normal. The interatrial septum is intact with no evidence for an atrial septal defect. AORTIC VALVE The aortic valve is normal in structure. Mild aortic regurgitation is present. There is no aortic valvular stenosis. There is no aortic valvular vegetation. MITRAL VALVE The mitral valve is normal in structure. There is no evidence of mitral valve prolapse. There is no mitral valve stenosis. There is mild mitral valve regurgitation noted. TRICUSPID VALVE The tricuspid valve is normal in structure. There is mild tricuspid valve regurgitation noted. RVSP is calculated at 20 mm Hg. There is no tricuspid valve prolapse or vegetation. There is no tricuspid valve stenosis. PULMONIC VALVE The pulmonary valve is normal in structure. There is no pulmonic valvular regurgitation. There is no pulmonic valvular stenosis. GREAT VESSELS The aortic root is normal in size. The ascending aorta is normal in size. The pulmonary artery is normal. The IVC is normal in size and collapses >50% with inspiration. PERICARDIAL EFFUSION There is no pericardial effusion. There is no pleural effusion. <Conclusion> The estimated ejection fraction is 55-60% Transmitral Doppler flow pattern is Grade I-abnormal relaxation pattern. The left atrium size is normal. Mild aortic regurgitation is present. There is mild mitral valve regurgitation noted. There is mild tricuspid valve regurgitation noted. RVSP is calculated at 20 mm Hg.
[2018-12-21] MEDS: Levothyroxine 125 MCG TAB PO SCH (06:08)
[2018-12-21] MEDS: Divalproex 125 mg Sprinkle Capsule PO SCH ×2 (08:35→16:55)
[2018-12-21] MEDS: Pantoprazole 40 mg EC Tab PO SCH (08:36)
[2018-12-21] MEDS: Enoxaparin 40 mg Syringe SC SCH (08:36)
--- NOTE | 2018-12-21 14:40 | CP.PCM.PN ---
Subjective - Date & Time of Evaluation Date of Evaluation: 12/21/18 Time of Evaluation: 10:50 - Subjective Subjective: F/U S/P Fall. confused, mild pain Thoracic and L-S pain Objective - Vital Signs/Intake and Output Vital Signs (last 24 hours): Temp Pulse Resp BP Pulse Ox 97.3 F L 67 20 160/74 H 97 12/21/18 08:41 12/21/18 08:41 12/21/18 08:41 12/21/18 08:41 12/21/18 08:41 - Medications Medications: Current Medications Acetaminophen (Tylenol 325mg Tab) 650 mg PO Q4 PRN PRN Reason: fever >101.0 Acetaminophen (Tylenol 325mg Tab) 650 mg PO Q6 PRN PRN Reason: Pain, Mild (1-3) Last Admin: 12/18/18 22:59 Dose: 650 mg Aspirin (Ecotrin) 81 mg PO DAILY [facility] Last Admin: 12/21/18 11:15 Dose: 81 mg Atorvastatin Calcium (Lipitor) 20 mg PO DAILY [facility] Last Admin: 12/21/18 11:14 Dose: 20 mg Benzocaine/Menthol (Cepacol Sore Throat) 1 maurizio PO Q4 PRN PRN Reason: Sore Throat Bisacodyl (Dulcolax) 10 mg [place] DAILY PRN PRN Reason: Constipation Divalproex Sodium (Depakote Sprinkles) 125 mg PO BID [facility] Last Admin: 12/21/18 08:35 Dose: 125 mg Enoxaparin Sodium (Lovenox) 40 mg SC DAILY [facility]; Protocol Last Admin: 12/21/18 08:36 Dose: 40 mg Ergocalciferol (Drisdol 50,000 Intl Units Cap) 1 cap PO Q7D [facility] Levothyroxine Sodium (Synthroid) 125 mcg PO DAILY@0630 [facility] Last Admin: 12/21/18 06:08 Dose: 125 mcg Losartan Potassium (Cozaar) 50 mg PO DAILY [facility] Last Admin: 12/21/18 08:35 Dose: 50 mg Magnesium Hydroxide (Milk Of Magnesia) 30 ml PO HS PRN PRN Reason: Constipation Meclizine HCl (Antivert) 12.5 mg PO BID PRN PRN Reason: Dizziness Last Admin: 12/20/18 09:05 Dose: 12.5 mg Ondansetron HCl (Zofran Tab) 4 mg PO Q4 PRN PRN Reason: Nausea/Vomiting Pantoprazole Sodium (Protonix Ec Tab) 40 mg PO DAILY [facility] Last Admin: 12/21/18 08:36 Dose: 40 mg Tramadol HCl (Ultram) 50 mg PO DAILY [facility] Last Admin: 12/21/18 08:39 Dose: 50 mg - Labs Labs: 12/20/18 12:15 12/20/18 12:15 PT 11.2 Seconds (9.8-13.1) 12/17/18 23:26 INR 1.0 12/17/18 23:26 APTT 33.5 Seconds (25.6-37.1) 12/17/18 23:26 - Constitutional Appears: No Acute Distress, Confused - Head Exam Additional comments: hematoma to forehead - Eye Exam Eye Exam: PERRL - ENT Exam ENT Exam: Normal Exam - Neck Exam Neck Exam: Normal Inspection - Respiratory Exam Respiratory Exam: NORMAL BREATHING PATTERN - Cardiovascular Exam Cardiovascular Exam: REGULAR RHYTHM - GI/Abdominal Exam GI & Abdominal Exam: Soft, Normal Bowel Sounds - Extremities Exam Extremities Exam: Normal Inspection - Back Exam Back Exam: tenderness (L-S- Thoracic) - Neurological Exam Neurological Exam: Abnormal Gait, Alert, Awake, CN II-XII Intact Additional comments: generalized weakness - Psychiatric Exam Additional comments: Calm - Skin Skin Exam: Warm Assessment and Plan (1) Status post fall Status: Acute (2) Traumatic hematoma of forehead Status: Acute (3) HTN (hypertension) Status: Chronic (4) Dementia Status: Chronic (5) Hypothyroidism Status: Chronic (6) Vertigo Status: Chronic (7) Thoracic spine fracture Status: Acute (8) Acute CVA (cerebrovascular accident) Status: Acute - Assessment and Plan (Free Text) Plan: Thoracic Spine MRI Acute-subacute Fx, MRI Brain Acute-subacute CVA, f/u EEG, Neurology consult, continue Ecotrin, Lipitor, Lovenox, Cozaar, Depakote and rest of Tx
--- NOTE | 2018-12-21 15:05 | CP.PCM.CON ---
History of Present Illness - History of Present Illness History of Present Illness: Neurology Consultation Note: Consult requested by Dr. Hollingsworth Mrs. Boland is a 73-year-old woman with a past medical history of HTN, HLD, possible seizures, who had a fall at home and struck her head. On exam, she had some mild left upper extremity weakness. She states she has had this weakness for a few days. CT head showed a mild right frontal scalp swelling. MRI of the brain was done and showed a right subcortical acute to subacute infarct. She was not a candidate for IV tPA due to unknown last normal time. Review of Systems - Constitutional Constitutional: As Per HPI - EENT Eyes: absent: As Per HPI, Blind Spots, Blurred Vision, Change in Vision, Decreased Night Vision, Diplopia, Discharge, Dry Eye, Exophthalmos, Floaters, Irritation, Itchy Eyes, Loss of Peripheral Vision, Pain, Photophobia, Requires Corrective Lenses, Sees Flashes, Spots in Vision, Tunnel Vision, Other Visual Disturbances, Loss of Vision, Other Ears: absent: As Per HPI, Decreased Hearing, Ear Discharge, Ear Pain, Tinnitus, Abnormal Hearing, Disequilibrium, Dizziness, Other Nose/Mouth/Throat: absent: As Per HPI, Epistaxis, Nasal Congestion, Nasal Discharge, Nasal Obstruction, Nasal Trauma, Nose Pain, Post Nasal Drip, Sinus Pain, Sinus Pressure, Bleeding Gums, Change in Voice, Dental Pain, Dry Mouth, Dysphagia, Halitosis, Hoarsness, Lip Swelling, Mouth Lesions, Mouth Pain, Odynophagia, Sore Throat, Throat Swelling, Tongue Swelling, Facial Pain, Neck Pain, Neck Mass, Other - Cardiovascular Cardiovascular: absent: As Per HPI, Acrocyanosis, Chest Pain, Chest Pain at Rest, Chest Pain with Activity, Claudication, Diaphoresis, Dyspnea, Dyspnea on Exertion, Edema, Irregular Heart Rhythm, Pain Radiating to Arm/Neck/Jaw, Leg Edema, Leg Ulcers, Lightheadedness, Orthopnea, Palpitations, Paroxysmal Nocturnal Dyspnea, Pedal Edema, Radiating Pain, Rapid Heart Rate, Slow Heart Rate, Syncope, Other - Respiratory Respiratory: absent: As Per HPI, Cough, Dyspnea, Hemoptysis, Dyspnea on Exertion, Wheezing, Snoring, Stridor, Pain on Inspiration, Chest Congestion, Excessive Mucous Production, Change in Mucous Color, Pain with Coughing, Other - Musculoskeletal Musculoskeletal: absent: As Per HPI, Abnormal Gait, Arthralgias, Atrophy, Back Pain, Deformity, Joint Swelling, Limited Range of Motion, Loss of Height, Muscle Cramps, Muscle Weakness, Myalgias, Neck Pain, Numbness, Radiating Pain into Limb, Stiffness, Tingling, Other - Neurological Neurological: As Per HPI - Psychiatric Psychiatric: absent: As Per HPI, Abnormal Sleep Pattern, Anhedonia, Anxiety, Auditory Hallucinations, Behavioral Changes, Change in Appetite, Change in Libido, Confusion, Depression, Difficulty Concentrating, Hallucinations, Homicidal Ideation, Hopelessness, Irritability, Memory Loss, Mood Swings, Panic Attacks, Paranoia, Suicidal Ideation, Visual Hallucinations, Tactile Hallucinations, Other - Endocrine Endocrine: absent: As Per HPI, Change in Body Appearance, Change in Libido, Cold Intolorance, Deepening of Voice, Excessive Sweating, Fatigue, Flushing, Heat Intolorance, Increase in Ring/Shoe/Hat Size, Palpitations, Polydipsia, Polyphagia, Polyuria, Other - Hematologic/Lymphatic Hematologic: absent: As Per HPI, Easy Bleeding, Easy Bruising, Lymphadenopathy, Other Past Patient History - Past Social History Smoking Status: Unknown If Ever Smoked Alcohol: None Drugs: Denies Home Situation {Lives}: Fpc - CARDIAC Hx Cardiac Disorders: Yes Hx Hypertension: Yes - PULMONARY Hx Respiratory Disorders: Yes Hx Asthma: Yes - NEUROLOGICAL Hx Neurological Disorder: Yes Hx Dementia: Yes Hx Vertigo: Yes - HEENT Hx HEENT Problems: No - RENAL Hx Chronic Kidney Disease: No - ENDOCRINE/METABOLIC Hx Endocrine Disorders: Yes Hx Hypothyroidism: Yes - HEMATOLOGICAL/ONCOLOGICAL Hx Blood Disorders: No - INTEGUMENTARY Hx Dermatological Problems: No - MUSCULOSKELETAL/RHEUMATOLOGICAL Hx Musculoskeletal Disorders: Yes Hx Falls: Yes - GASTROINTESTINAL Hx Gastrointestinal Disorders: Yes Hx Constipation: Yes Hx Ulcer: Yes Other/Comment: GERD - GENITOURINARY/GYNECOLOGICAL Hx Genitourinary Disorders: No - PSYCHIATRIC Hx Psychophysiologic Disorder: Yes Hx Anxiety: Yes Hx Substance Use: No - SURGICAL HISTORY Hx Surgeries: Yes Other/Comment: pt unsure of surgical hx, pt has hx of dementia. Meds Allergies/Adverse Reactions: Allergies Allergy/AdvReac Type Severity Reaction Status Date / Time [place] And Derivatives Allergy ITCHING Verified 12/18/18 04:51 - Medications Medications: Current Medications Acetaminophen (Tylenol 325mg Tab) 650 mg PO Q4 PRN PRN Reason: fever >101.0 Acetaminophen (Tylenol 325mg Tab) 650 mg PO Q6 PRN PRN Reason: Pain, Mild (1-3) Last Admin: 12/18/18 22:59 Dose: 650 mg Aspirin (Ecotrin) 81 mg PO DAILY [facility] Last Admin: 12/21/18 11:15 Dose: 81 mg Atorvastatin Calcium (Lipitor) 20 mg PO DAILY [facility] Last Admin: 12/21/18 11:14 Dose: 20 mg Benzocaine/Menthol (Cepacol Sore Throat) 1 maurizio PO Q4 PRN PRN Reason: Sore Throat Bisacodyl (Dulcolax) 10 mg [place] DAILY PRN PRN Reason: Constipation Divalproex Sodium (Depakote Sprinkles) 125 mg PO BID [facility] Last Admin: 12/21/18 08:35 Dose: 125 mg Enoxaparin Sodium (Lovenox) 40 mg SC DAILY [facility]; Protocol Last Admin: 12/21/18 08:36 Dose: 40 mg Ergocalciferol (Drisdol 50,000 Intl Units Cap) 1 cap PO Q7D [facility] Levothyroxine Sodium (Synthroid) 125 mcg PO DAILY@0630 [facility] Last Admin: 12/21/18 06:08 Dose: 125 mcg Losartan Potassium (Cozaar) 50 mg PO DAILY [facility] Last Admin: 12/21/18 08:35 Dose: 50 mg Magnesium Hydroxide (Milk Of Magnesia) 30 ml PO HS PRN PRN Reason: Constipation Meclizine HCl (Antivert) 12.5 mg PO BID PRN PRN Reason: Dizziness Last Admin: 12/20/18 09:05 Dose: 12.5 mg Ondansetron HCl (Zofran Tab) 4 mg PO Q4 PRN PRN Reason: Nausea/Vomiting Pantoprazole Sodium (Protonix Ec Tab) 40 mg PO DAILY [facility] Last Admin: 12/21/18 08:36 Dose: 40 mg Tramadol HCl (Ultram) 50 mg PO DAILY [facility] Last Admin: 12/21/18 08:39 Dose: 50 mg Physical Exam - Constitutional Appears: Well - Head Exam Additional comments: slight swelling over right frontal region - Eye Exam Eye Exam: EOMI, Normal appearance, PERRL Pupil Exam: NORMAL ACCOMODATION, PERRL - ENT Exam ENT Exam: Mucous Membranes Moist, Normal Exam - Neck Exam Neck exam: Positive for: Normal Inspection - Respiratory Exam Respiratory Exam: Clear to Auscultation Bilateral, NORMAL BREATHING PATTERN - Cardiovascular Exam Cardiovascular Exam: REGULAR RHYTHM, +S1, +S2 - GI/Abdominal Exam GI & Abdominal Exam: Normal Bowel Sounds, Soft. absent: Tenderness - Rectal Exam Rectal Exam: NORMAL INSPECTION - Extremities Exam Extremities exam: Positive for: normal inspection - Back Exam Back exam: NORMAL INSPECTION - Neurological Exam Neurological exam: Abnormal Gait, Alert, CN II-XII Intact, Oriented x3, Reflexes Normal Additional comments: Strength in left upper extremity is 3-4/5 proximally. Strength in left lower extremity is 4/5 proximally and distally. Right side strength is normal. Re flexes are normal. - Psychiatric Exam Psychiatric exam: Normal Affect, Normal Mood - Skin Skin Exam: Dry, Intact, Normal Color, Warm Results - Vital Signs Recent Vital Signs: Last Vital Signs Temp 97.3 F L 12/21/18 08:41 Pulse 67 12/21/18 08:41 Resp 20 12/21/18 08:41 BP 160/74 H 12/21/18 08:41 Pulse Ox 97 12/21/18 08:41 - Labs Result Diagrams: 12/20/18 12:15 12/20/18 12:15 Assessment & Plan (1) Ischemic stroke Assessment and Plan: The patient's fall may have been due to the stroke. I recommend the following for work-up and management: 1. Telemetry 2. Continue aspirin and Lipitor at current dose 3. PT/OT eval and treatment 4. Echocardiogram 5. May normalize BP 6. Case management consult Thank you for this consultation. Status: Acute
--- NOTE | 2018-12-21 16:18 | PCM.EEG ---
Electroencephalogram Report - Electroencephalogram Report Procedure Date: 12/20/18 Medication: Lipitor, Meclizine, ASA Interpretation: Technical Information: This was a 16 -channel EEG, 1-channel EKG routine EEG performed using an VFA machine. Electrodes were applied using the 10/20 international placement system. Start; 19;09 End; 20;00 Total 51 minutes. Clinical Information: seizures During resting wakefulness there was a symmetric posterior dominant rhythm at 8.5-9.5 Hz, 30-50 uV, which was reactive to eye opening and closing. Drowsiness (19;44) was associated with fragmentation of the posterior dominant rhythm and with slow roving eye movements. Light sleep was not recorded. Hyperventilation was not performed. Photic stimulation was performed and there were no changes on the record. Focal abnormality; none ECG was associated with a normal sinus rhythm. Impression: This is a normal awake and drowsy electroencephalogram.
[2018-12-22] MEDS: Levothyroxine 125 MCG TAB PO SCH (06:48)
[2018-12-22 08:22] VITALS: RESP 20
[2018-12-22] MEDS: Pantoprazole 40 mg EC Tab PO SCH (09:22)
[2018-12-22] MEDS: Divalproex 125 mg Sprinkle Capsule PO SCH (09:22)
[2018-12-22] MEDS: Enoxaparin 40 mg Syringe SC SCH (09:23)
--- NOTE | 2018-12-22 10:01 | CP.PCM.CON ---
History of Present Illness - History of Present Illness History of Present Illness: This 73-year-old female was brought into the emergency room after falling while attempting to walk without a walker when she lost her balance and hit her head against the floor. There is no history of a syncope here. Review of the chart which includes notes from the emergency room, the admitting physician and a neurologist do not mention any observed syncopal episode. The patient has been taking antihypertensive medication. She has been chronically institutionalized at the senior living. Physical examination shows an elderly lady who is able to converse in Dutch. Denies a loss of consciousness though appears to be mildly confused about her surroundings. Telemetry shows steady sinus rhythm with no AV conduction abnormalities or tachycardic events. Her blood pressure was 126/74 mmHg. There was no orthostatic change to her blood pressure. Her jugular venous pressure was not elevated and there was no edema over her lower extremities. There was a small ecchymotic area over her right eyebrow. Her extremities were warm her nailbeds were pink. There was no central or peripheral cyanosis. There was no clubbing. The apex was not palpable the first and second heart sounds were normal. There was no murmur or gallop. There were no rales. Her abdomen was soft liver and spleen are not palpable. Her electrocardiogram taken today shows sinus rhythm with nonspecific ST changes but no Q waves. Echocardiogram taken yesterday shows preserved left ventricular systolic function with no evidence of significant valve abnormality. Her labs show mild anemia of microcytic pattern. Her renal function appears stable. Electrolytes were normal. Impression: Accidental fall in a patient with mild dementia. No history of syncope. The patient is stable from cardiovascular point of view. Past Patient History - Past Social History Smoking Status: Unknown If Ever Smoked Alcohol: None Drugs: Denies Home Situation {Lives}: Fdc - CARDIAC Hx Cardiac Disorders: Yes Hx Hypertension: Yes - PULMONARY Hx Respiratory Disorders: Yes Hx Asthma: Yes - NEUROLOGICAL Hx Neurological Disorder: Yes Hx Dementia: Yes Hx Vertigo: Yes - HEENT Hx HEENT Problems: No - RENAL Hx Chronic Kidney Disease: No - ENDOCRINE/METABOLIC Hx Endocrine Disorders: Yes Hx Hypothyroidism: Yes - HEMATOLOGICAL/ONCOLOGICAL Hx Blood Disorders: No - INTEGUMENTARY Hx Dermatological Problems: No - MUSCULOSKELETAL/RHEUMATOLOGICAL Hx Musculoskeletal Disorders: Yes Hx Falls: Yes - GASTROINTESTINAL Hx Gastrointestinal Disorders: Yes Hx Constipation: Yes Hx Ulcer: Yes Other/Comment: GERD - GENITOURINARY/GYNECOLOGICAL Hx Genitourinary Disorders: No - PSYCHIATRIC Hx Psychophysiologic Disorder: Yes Hx Anxiety: Yes Hx Substance Use: No - SURGICAL HISTORY Hx Surgeries: Yes Other/Comment: pt unsure of surgical hx, pt has hx of dementia. Meds Allergies/Adverse Reactions: Allergies Allergy/AdvReac Type Severity Reaction Status Date / Time [place] And Derivatives Allergy ITCHING Verified 12/18/18 04:51 - Medications Medications: Current Medications Acetaminophen (Tylenol 325mg Tab) 650 mg PO Q4 PRN PRN Reason: fever >101.0 Acetaminophen (Tylenol 325mg Tab) 650 mg PO Q6 PRN PRN Reason: Pain, Mild (1-3) Last Admin: 12/18/18 22:59 Dose: 650 mg Aspirin (Ecotrin) 81 mg PO DAILY [facility] Last Admin: 12/22/18 09:22 Dose: 81 mg Atorvastatin Calcium (Lipitor) 20 mg PO DAILY [facility] Last Admin: 12/22/18 09:22 Dose: 20 mg Benzocaine/Menthol (Cepacol Sore Throat) 1 maurizio PO Q4 PRN PRN Reason: Sore Throat Bisacodyl (Dulcolax) 10 mg SD DAILY PRN PRN Reason: Constipation Divalproex Sodium (Depakote Sprinkles) 125 mg PO BID [facility] Last Admin: 12/22/18 09:22 Dose: 125 mg Enoxaparin Sodium (Lovenox) 40 mg SC DAILY [facility]; Protocol Last Admin: 12/22/18 09:23 Dose: 40 mg Ergocalciferol (Drisdol 50,000 Intl Units Cap) 1 cap PO Q7D [facility] Levothyroxine Sodium (Synthroid) 125 mcg PO DAILY@0630 [facility] Last Admin: 12/22/18 06:48 Dose: 125 mcg Losartan Potassium (Cozaar) 50 mg PO DAILY [facility] Last Admin: 12/22/18 09:22 Dose: 50 mg Magnesium Hydroxide (Milk Of Magnesia) 30 ml PO HS PRN PRN Reason: Constipation Meclizine HCl (Antivert) 12.5 mg PO BID PRN PRN Reason: Dizziness Last Admin: 12/20/18 09:05 Dose: 12.5 mg Ondansetron HCl (Zofran Tab) 4 mg PO Q4 PRN PRN Reason: Nausea/Vomiting Pantoprazole Sodium (Protonix Ec Tab) 40 mg PO DAILY [facility] Last Admin: 12/22/18 09:22 Dose: 40 mg Tramadol HCl (Ultram) 50 mg PO DAILY [facility] Last Admin: 12/22/18 09:21 Dose: 50 mg Results - Vital Signs Recent Vital Signs: Last Vital Signs Temp 97.6 F 12/22/18 08:22 Pulse 69 12/22/18 08:22 Resp 20 12/22/18 08:22 BP 158/66 H 12/22/18 08:22 Pulse Ox 99 12/22/18 08:22 - Labs Result Diagrams: 12/20/18 12:15 12/20/18 12:15
--- NOTE | 2018-12-22 10:56 | PCM.STROKE ---
Interval History Unable to obtain (state reason): unknown last time normal; weakness for several days No other interval changes in current, PMHx, FHx, SocHx, ROS: other than on note by: (initial neuro H&P) - Treatment DVT Prophylaxis: Sequential compression device in place bilaterally, Lovenox Antiplatelet: Acetylsalicylic acid (ASA) Statin: Atrovastatin - Education Written Stroke Education provided regarding: personal risk factors, stroke warning sign/symptoms, how to activate emergency medical services, need to follow up after discharge Hx Atrial Fibrillation: No Hx Atrial Flutter: No - Therapy Notes Physical therapy notes date reviewed: 12/22/18 Occupational therapy notes date reviewed: 12/22/18 I have reviewed care of the patient with: Dr. Del Castillo NIHSS Stroke Scale - Date/Time Evaluation Performed Date Performed: 12/22/18 Time Performed: 11:04 When Was NIHSS Performed: Re-evaluation - How Severe is the Stroke Level of Consciousness: 0=Alert LOC to Questions: 1=One correct (knows she is in the hospital) LOC to commands: 0=Obeys both correctly Best Gaze: 0=Normal Visual: 0=No visual loss Facial: 0=Normal Motor Arm - Left: 0=No drift Motor Arm - Right: 0=No drift Motor Leg - Left: 0=No drift Motor Leg - Right: 0=No drift Limb Ataxia: 0=Absent Sensory: 0=Normal Best Language: 0=No aphasia Dysarthia: 0=Normal articulation Extinction & Inattention (Neglect): 0=Normal, no object Score: 1 Exam - Vital Sign Vital Signs: Temp Pulse Resp BP Pulse Ox 97.6 F 69 20 158/66 H 99 12/22/18 08:22 12/22/18 08:22 12/22/18 08:22 12/22/18 08:22 12/22/18 08:22 Constitutional: No distress, Normal appearing Ophthalmoscopic: absent: papilledema, hemorrhage Right Pupil: Reactive Right Pupil Size (in mm): 2 Left Pupil: Reactive Left Pupil Size (in mm): 2 Cardiovascular: Regular rate & rhythm Mental Status: Normal: Attention, Language, Other (baseline dementia; perios of confusion and forgetfulness) Cranial Nerve: Normal: Visual Hinkle, Extraocular movement intact, Facial Sensation, Facial Strength, Hearing, Palate/Tongue Movement, Shoulder Strength Motor: Tone, Bulk Neuro motor strength exam: Left Upper Extremity: 5, Right Upper Extremity: 5, Left Lower Extremity: 5, Right Lower Extremity: 5 Sensation: Intact to pin DTR: Patellar Left: 1+, Patellar Right: 1+ Flexor Plantar Reflex: Normal Coordination: Finger/nose, Heel/Yeh Vascular Risk: Hypertension, Age - Data reviewed Laboratory results: 12/20/18 12:15 12/20/18 12:15 Triglycerides 62 mg/DL (0-149) 12/18/18 08:55 Cholesterol 193 mg/dL (0-199) 12/18/18 08:55 LDL Cholesterol Direct 101 mg/dL (0-129) 12/18/18 08:55 HDL Cholesterol 54 MG/DL (30-70) 12/18/18 08:55 Assessment and Plan (1) CVA (cerebral vascular accident) Assessment & Plan: Imaging reviewed: -EEG (12/21/18): Normal -Carotid U/S (12/19/18): VERTEBRAL ARTERIES: Right Vertebral Artery: Patent. Antegrade flow. Left Vertebral Artery: Patent. Antegrade flow. OTHER FINDINGS: No atherosclerotic calcification present IMPRESSION: Per NASCET criteria, less than 50 percent stenosis of the internal carotid arteries, bilaterally. -MRI Brain (12/20/18): Findings most compatible with a small infarct on acute or subacute basis at the right basal ganglia laterally. Consider follow-up CT of the head without contrast. Multiple chronic lacune scattered and better defined at the bilateral basal ganglia and thalami. Reiterated age related neuro degenerative changes. -ECHO (12/20/18): EF 55-60%, no LV thrombus -CT Head (12/17/18): Mild right frontal scalp swelling. No calvarial fracture. No acute intracranial pathology. Age-related changes. -Continue ASA and Statin at [facility]. -Continue management of risk factors including BP control. -Continue Depakote at [facility]. -Continue PT/OT. -Neurologically stable for d/c to [facility]. Reconsult prn. Please have pt f/u with Dr. Del Castillo in the office within 1 month for stroke f/u if possible. Discussed d/c plan and f/u with pt's daughter at bedside. Thank you for this consultation. Eri Gage, DNP, ADJUSTER ARBITRATOR d/w Dr. Del Castillo Status: Acute
--- NOTE | 2018-12-22 11:29 | CP.PCM.PCO ---
Assessment/Plan - Assessment and Plan (Free Text) Assessment: pt. doing well, family at bedside s/p PT/OT pt. cleared for d/c back to [facility] today by Neuro/ cont. ASA/Lipitor pt. will f/u with at
[2018-12-22 12:23] VITALS: BP 134/71; PULSE 72; TEMP 98.4; O2SAT 96
--- NOTE | 2018-12-22 15:16 | PQF ---
PROVIDER RESPONSE TEXT: Compression fracture due to trauma, fall REVIEWER QUERY TEXT: Fracture Cause Traumatic or Non-Trauma Please clarify whether the documented Compression fracture is due to traumatic or non-traumatic cause and please document the site. Such as: Traumatic: -- Traumatic compression fracture -- Traumatic fracture Non-traumatic: -- Chronic fracture -- Non-traumatic compression fracture -- Insufficiency -- Spontaneous -- Pathological fracture (specify cause such as osteoporosis or malignancy) -- Stress fracture -- Wedge fracture -- Other, please specify The patient's Clinical Indicators include: Rupa, via EMS for evaluation of Fall/Trauma on DOA, Pt trying to walk while in the alf wi thout the walker, she lost the balance hitting her head against the ground, Pt c/o of pain in the for ehead, described as constant, moderate to severe intensity 8:10 with no relief, associated to hematom a in the site. MRI Thoracic spine: Edema is appreciate the upper endplates of T1, T2 and T5 with limited anterior w edging compatible with mild acute subacute compression fractures Query created by: Akiko Ray on 12/22/2018 9:39 AM Electronically signed by: Von Hollingsworth MD 12/22/2018 3:13 PM
--- NOTE | 2018-12-22 19:46 | CARD ---
APPROVED REPORT Date of service: 12/22/2018 EKG Measurement Heart [id number] MD [id number] <Conclusion> Normal sinus rhythm Nonspecific T wave abnormality Abnormal ECG
[2018-12-25] MEDS ORDERED: Ergocalciferol 50,000 Intl Units Cap PO SCH (22:15)
== END 2018-12-22 15:40 | DRG 65 ==
LOC: H.ER 20:30 → H.ERHOLD 23:48 → H.MEDSURG1 12-18 04:04 → OBSVTOIN 12-19 17:26 → H.MEDSURG1 12-20 15:27 → H.TEL 12-21 22:13
PROVIDERS: ADMIT Internal Medicine Pulmonary Disease; ATTEND Internal Medicine Pulmonary Disease
DX: I63.233 Cerebral infarction due to unspecified occlusion or stenosis of bilateral carotid arteries (principal); S22.058A Other fracture of T5-T6 vertebra, initial encounter for closed fracture; S00.83XA Contusion of other part of head, initial encounter; F03.90 Unspecified dementia, unspecified severity, without behavioral disturbance, psychotic disturbance, mood disturbance, and anxiety; E03.9 Hypothyroidism, unspecified; I10 Essential (primary) hypertension; W01.0XXA Fall on same level from slipping, tripping and stumbling without subsequent striking against object, initial encounter; D50.9 Iron deficiency anemia, unspecified; M48.061 Spinal stenosis, lumbar region without neurogenic claudication; M50.322 Other cervical disc degeneration at C5-C6 level; M51.36 Other intervertebral disc degeneration, lumbar region; E78.5 Hyperlipidemia, unspecified; K21.9 Gastro-esophageal reflux disease without esophagitis; F41.9 Anxiety disorder, unspecified; Y92.129 Unspecified place in nursing home as the place of occurrence of the external cause